=== PATIENT | male | born 1995 | race Two or more races ===

== ENCOUNTER 2022-04-17 09:33 | Day surgery (SDC) | payer MEDICAID, SELFPAY ==
[2022-04-11 15:25] VITALS: BMI 23.3
[2022-04-17] VITALS (7 sets, daily range): BP systolic 125–145; BP diastolic 73–84; PULSE 69–83; RESP 12–18; TEMP 36.4–36.8; O2SAT 98–100
--- NOTE | 2022-04-17 10:57 | HO.ANESPROP2 ---
HPI - Anesthesia Eval Consult details Narrative: 26 yo male patient for Right Superior Rectus muscle recession PMF Past Medical History Medical History (Updated 04/16/22 @ 09:34 by Bhargavi Aaron RN) Dysfunction of left eustachian tube Exotropia of right eye Family History Family history of problems with anesthesia: No Surgical History Surgical History (Updated 04/16/22 @ 09:34 by Bhargavi Aaron RN) H/O arthroscopy of shoulder History of Problems with Anesthesia: No Social History Social History Patient Tobacco Use Status: Never used Tobacco Second Hand Smoke Exposure: No Use of substances other than those prescribed or required for medical reasons: No Are you DNR?: No Advance Directives: No Advance Directives Information Provided: Yes Advance Directives on File: No Meds Allergies Allergy/AdvReac Type Severity Reaction Status Date / Time No Known Allergies Allergy Verified 04/16/22 09:33 Exam Exam Date and Time: April 17, 2022 1057 Height,Weight and Vital Signs: Height 5 ft 10.75 in Weight 75.3 kg Last Vital Signs Temp 98.3 F 04/17/22 10:41 Pulse 83 04/17/22 10:41 Resp 16 04/17/22 10:41 BP 132/84 04/17/22 10:41 Pulse Ox 99 04/17/22 10:41 O2 Del Method 04/17/22 10:41 Airway Mallampati Class: II TM Dist: >3cm Neck ROM: Full Loose/Missing/Broken Teeth: No (Denies broken or loose teeth) Heart: RRR Lungs: CTAB Assessment and Plan Assessment Anesthesia Assessment: Anesthesia Plan Discussed and Chart Reviewed Final Anesthetic Review Family History of Problems with Anesthesia: No History of Problems with Anesthesia: No NPO: Yes ASA Class: I Final Preanesthetic Review: No Changes in Pt Med Stat, Meds/Allgs Chart Reviewed, Consent Obtained/Reviewed and Anes Risks/Benef Reviewed Patient Risk: Low Procedure Risk: Low Assessment/Block/Sedation in SS: Assess/Block/Sedation-SS Anesthetic Plan Anesthetic Plan: GA Disposition: Standard PACU
[2022-04-17] MEDS: Lactated Ringers 1,000 ML 100 ML IVCONT (11:59)
--- NOTE | 2022-04-17 13:10 | P.OPHTHAL_ITS ---
Ophthalmology Operative Note Date of Service: 04/17/22 Narrative: Diagnoses 1. Right hypertropia 2. Exotropia. Procedures 1. Bilateral lateral rectus recessions of 4 mm 2. Recession of left inferior rectus muscle [address] Johnson anesthesia general complications none. The patient was brought to the operating room placed under general anesthesia. The patient's eyes were prepped and draped in the usual sterile ophthalmic fashion. a lid speculum was placed in the right eye and an incision was made at bare sclera in the inferotemporal fornix. The lateral rectus muscle was hooked and secured with a double-armed Vicryl suture. The muscle was then disinserted from the denise be and reattached to a position 4 mm behind the original insertion using the Vicryl suture. Conjunctiva was closed with interrupted Vicryl sutures. Lid speculum was then placed in the left eye and I identical procedure was performed on the left lateral rectus muscle. The inferior rectus muscle was then hooked and secured with a double-armed Vicryl suture. The muscle was disinserted the globe and reattached to a position 5 mm behind the original insertion. Conjunctiva was closed with interrupted Vicryl sutures. The patient was then awoken from general anesthesia and discharged to postoperative recovery in good condition.
[2022-04-17] MEDS: Tetracaine HCl/PF 0.5% Oph Sol 4 ML DROPS 1 DROP EYE-RIGHT ×2 (13:35→14:00)
[2022-04-17] MEDS: Acetaminophen 325 MG TABLET 650 MG PO (13:50)
== END 2022-04-17 14:30 | disposition home or self-care (01) ==
PROVIDERS: Visit Provider Ophthalmology
PROC: (CPT 67314; principal; 2022-04-17 11:10)
DX: H50.21 Vertical strabismus, right eye (principal); H50.10 Unspecified exotropia
CPT/HCPCS: 67314; 67311; J1100; J2250; J2405; J3010